=== PATIENT | female | born 1995 | race Hispanic/Latino ===

== ENCOUNTER 2018-10-16 19:22 | Emergency (ER) | payer OTHER ==
--- NOTE | 2018-10-16 19:40 | Emergency Department Report ---
Blank Doc - Documentation Documentation: 22 Y/O FEMALE PRESENTS TO ED C/O OF VAGINAL BLEEDING SINCE MAY 2018. NO PAIN pLAN LABS AND US.
[2018-10-16 20:11] LABS: Basophils # (Auto) 0.1 K/mm3 (0.0-0.1); Basophils % (Auto) 1.4 % (0.0-1.8); Eosinophils # (Auto) 0.6 K/mm3 (0.0-0.4); Eosinophils % (Auto) 6.7 % (0.0-4.3); Hematocrit 34.7 % (30.3-42.9); Hemoglobin 11.1 gm/dl (10.1-14.3); Lymphocytes # (Auto) 2.9 K/mm3 (1.2-5.4); Lymphocytes % (Auto) 30.4 % (13.4-35.0); Mean Corpuscular HGB Conc 32 % (30-34); Mean Corpuscular Volume 74 fl (79-97); Monocytes # (Auto) 0.5 K/mm3 (0.0-0.8); Monocytes % (Auto) 5.3 % (0.0-7.3); Platelet Count 352 K/mm3 (140-440); Red Blood Count 4.68 M/mm3 (3.65-5.03); Red Cell Distribution Width 15.7 % (13.2-15.2)
[2018-10-16 20:27] LABS: INR 0.99 (0.87-1.13)
[2018-10-16 21:32] LABS: HCG Qualitative,Urine Negative (Negative)
--- NOTE | 2018-10-16 22:32 | Emergency Department Report ---
ED Female HPI - General Chief complaint: Vaginal Bleeding Stated complaint: VAGINAL BLEEDING Time Seen by Provider: 10/16/18 19:36 Source: patient, family Mode of arrival: Ambulatory Limitations: No Limitations - History of Present Illness Initial comments: 22-year-old female presents to the emergency room for vaginal bleeding since 06/21/2018. Patient reports that she has gone through 3 maxipads and have the change every 30 minutes. Patient denies abdominal pain. MD Complaint: vaginal bleeding Onset/Timin -: month(s) Severity: moderate Consistency: constant Improves with: none Worsens with: none Are you Now?: No Associated Symptoms: vaginal bleeding. denies: abdominal pain, nausea/vomiting, fever/chills, dysuria - Related Data Previous Rx's Medication Instructions Recorded Last Taken Type medroxyPROGESTERone ACETATE 10 mg PO QDAY 10 Days #10 tablet 10/17/18 Unknown Rx [Provera] Allergies Allergy/AdvReac Type Severity Reaction Status Date / Time No Known Allergies Allergy Unverified 10/16/18 19:27 ED Review of Systems ROS: Stated complaint: VAGINAL BLEEDING Other details as noted in HPI Comment: All other systems reviewed and negative Genitourinary: other (vaginal bleeding) ED Past Medical Hx - Past Medical History Previous Medical History?: No - Surgical History Past Surgical History?: Yes Additional Surgical History: Tonsilectomy - Social History Smoking Status: Current Some Day Smoker - Medications Home Medications: Home Medications Medication Instructions Recorded Confirmed Last Taken Type medroxyPROGESTERone ACETATE 10 mg PO QDAY 10 Days #10 tablet 10/17/18 Unknown Rx [Provera] ED Physical Exam - General Limitations: No Limitations General appearance: alert, in no apparent distress, obese ED Course Vital Signs 10/16/18 10/16/18 19:25 19:34 Temperature 97.7 F 97.7 F Pulse Rate 102 H 103 H Respiratory 18 18 Rate Blood Pressure 140/90 140/90 O2 Sat by Pulse 98 99 Oximetry ED Medical Decision Making - Lab Data Result diagrams: 10/16/18 19:53 Laboratory Tests 10/16/18 10/16/18 10/16/18 19:53 19:53 20:52 WBC 9.5 RBC 4.68 Hgb 11.1 Hct 34.7 MCV 74 L MCH 24 L MCHC 32 RDW 15.7 H Plt Count 352 Lymph % (Auto) 30.4 [place] % (Auto) 5.3 Eos % (Auto) 6.7 H Baso % (Auto) 1.4 Lymph # 2.9 [place] # 0.5 Eos # 0.6 H Baso # 0.1 Seg Neutrophils % 56.2 Seg Neutrophils # 5.3 PT 12.8 INR 0.99 Urine HCG, Qual Negative - Radiology Data Radiology results: report reviewed Patient: SANTANA LEMUS MR#: [id number] : 1995 Acct:[id number] Age/Sex: 22 / F ADM Date: 10/16/18 Loc: ED Attending Dr: Ordering Physician: PUSHPA HOLLINGSWORTH Date of Service: 10/16/18 Procedure(s): US transvaginal Accession Number(s): [id number] cc: PUSHPA HOLLINGSWORTH PROCEDURE: US TRANSVAGINAL TECHNIQUE: Real-time transabdominal sonography in multiple planes of the pelvis was performed. The pelvic structures were not optimally visualized. Transvaginal sonography was then performed to better evaluate the structures and/or abnormalities described below with image documentation. Grayscale, color flow Doppler imaging, and velocity spectral waveform analysis of the ovaries was employed (duplex imaging). HISTORY: MENORRHAGIA COMPARISONS: None . FINDINGS: UTERUS Size: 6.2 x 3.5 x 3.9 cm. Endometrial thickness: 15 mm. Orientation: anteverted. Cervix: Normal. Fibroids/masses: None. RIGHT Ovary: 3.1 x 2.2 x 3 cm. Appearance: Normal. Doppler images: Normal spectral waveforms and color flow images of the arterial inflow and venous outflow.. LEFT Ovary: 3.1 x 1.8 x 2.8 cm. Appearance: Normal. Doppler images: Normal spectral waveforms and color flow images of the arterial inflow and venous outflow.. Pelvic fluid: None. IMPRESSION: Normal Examination. This document is electronically signed by Afia Field DO., October 17 2018 12:06:40 AM ET Transcribed By: [facility] Dictated By: AFIA FIELD MD Electronically Authenticated By: AFIA FIELD MD Signed Date/Time: 10/17/18 0008 DD/ 19 TD/TT: 10/16/182319 - Medical Decision Making 22-year-old female presents to the emergency room for 4 months of vaginal bleeding. HCG is negative. Ultrasound is negative for fibroids or any abnormalities. Patient placed on Provera 10 mg by mouth daily for 10 days and a referral to follow up with her [facility] [employer] provider. Critical care attestation.: If time is entered above; I have spent that time in minutes in the direct care of this critically ill patient, excluding procedure time. ED Disposition Clinical Impression: Menorrhagia with irregular cycle Disposition: - TO HOME OR SELFCARE Is pt being admited?: No Does the pt Need Aspirin: No Condition: Stable Instructions: Menorrhagia (ED) Additional Instructions: Take medications as prescribed. Follow-up with [facility] [employer] provider. Prescriptions: medroxyPROGESTERone ACETATE [Provera] 10 mg PO QDAY 10 Days #10 tablet Referrals: PAYAM ARMENTA MD [Primary Care Provider] - 3-5 Days
--- NOTE | 2018-10-17 00:08 | Ultrasound Report ---
PROCEDURE: US PELVIC COMPLETE TECHNIQUE: Real-time transabdominal sonography in multiple planes of the pelvis was performed. The p elvic structures were not optimally visualized. Transvaginal sonography was then performed to better evaluate the structures and/or abnormalities described below with image documentation. Grayscale, col or flow Doppler imaging, and velocity spectral waveform analysis of the ovaries was employed (duplex imaging). HISTORY: MENORRHAGIA COMPARISONS: None . FINDINGS: UTERUS Size: 6.2 x 3.5 x 3.9 cm. Endometrial thickness: 15 mm. Orientation: anteverted. Cervix: Normal. Fibroids/masses: None. RIGHT Ovary: 3.1 x 2.2 x 3 cm. Appearance: Normal. Doppler images: Normal spectral waveforms and color flow images of the arterial inflow and venous out flow.. LEFT Ovary: 3.1 x 1.8 x 2.8 cm. Appearance: Normal. Doppler images: Normal spectral waveforms and color flow images of the arterial inflow and venous out flow.. Pelvic fluid: None. IMPRESSION: Normal Examination. This document is electronically signed by Afia Field DO., October 17 2018 12:05:46 AM ET
[2018-10-17 01:09] VITALS: BP 126/82
== END 2018-10-17 01:08 | disposition home or self-care (01) ==
LOC: ED 19:22
DX: N92.6 Irregular menstruation, unspecified (principal)
CPT/HCPCS: 36415; 76830; 76856; 81025; 85025; 85610